=== PATIENT | male | born 1955 | race African-American/Black ===

== ENCOUNTER 2016-09-16 08:22 | Outpatient (CLI) | payer MEDICARE, MEDICAID ==
[2016-09-16 09:45] LABS: ALT (SGPT) 6 U/L (0-55); AST (SGOT) 11 U/L (5-34); Albumin 3.6 g/dL (3.5-5.0); Alkaline Phosphatase 89 U/L (40-150); Anion Gap 19 mmol/L (10-20); BUN (Urea Nitrogen) 35 mg/dL (8.4-25.7); Bilirubin, Total 0.8 mg/dL (0.2-1.2); Calc. Creatinine Clearance 0 mL/min (70-130); Calcium 10.1 mg/dL (7.8-10.44); Carbon Dioxide 29 mmol/L (22-29); Chloride 99 mmol/L (98-107); Estimated GFR-MDRD 12; Glucose 76 mg/dL (70-105); Potassium 4.1 mmol/L (3.5-5.1); Protein, Total 8.6 g/dL (6.0-8.3); Sodium 143 mmol/L (136-145)
[2016-09-16 10:38] LABS: #Basophils 0.1 thou/uL (0.0-0.2); #Eosinphils 0.5 thou/uL (0.0-0.7); #Lymphocytes 1.5 thou/uL (1.20-3.40); #Monocytes 0.7 thou/uL (0.11-0.59); #Neutrophils 4.3 thou/uL (1.40-6.50); %Basophils 0.8 % (0.0-1.0); %Eosinophils 6.9 % (0.0-10.0); %Lymphocytes 21.8 % (21.0-51.0); %Monocytes 9.4 % (0.0-10.0); %Neutrophils 61.1 % (42.0-75.0); Hemoglobin 9.9 g/dL (14.0-18.0); MDiff Complete? YES; Mean Corpuscular Hemoglobin 24.2 pg (27.0-31.0); Mean Corpuscular Volume 80.8 fl (80.0-94.0); Mean Platelet Volume 5.5 fL (7.4-10.4); Platelet Count 253 thou/uL (130-400); RBC Distribution Width 15.5 % (11.5-14.5); Red Blood Cell (RBC) Count 4.08 mill/uL (4.70-6.10); White Blood Cell (WBC) Count 7.1 thou/uL (4.8-10.8)
[2016-09-16 10:39] LABS: Anisocytosis SLIGHT = 6-15 cells (100X) (0-5/hpf); Hypochromia SLIGHT = 6-15 cells (100X) (0-5/hpf); PLT Morphology Comment Appears Adequate
== END 2016-09-16 08:23 | disposition home or self-care (01) ==
LOC: NAV NNR 08:22
PROVIDERS: ATTEND Internal Medicine
DX: E11.29 Type 2 diabetes mellitus with other diabetic kidney complication (principal); I10 Essential (primary) hypertension
CPT/HCPCS: 80053; 83880; 84443; 85025

== ENCOUNTER 2017-01-05 07:23 | Outpatient (CLI) | payer MEDICARE, OTHER ==
[2017-01-05 07:54] LABS: ALT (SGPT) 8 U/L (8-55); AST (SGOT) 13 U/L (5-34); Albumin 3.2 g/dL (3.5-5.0); Alkaline Phosphatase 74 U/L (40-150); Anion Gap 13 mmol/L (10-20); BUN (Urea Nitrogen) 23 mg/dL (8.4-25.7); Bilirubin, Total 0.7 mg/dL (0.2-1.2); Calc. Creatinine Clearance 0 mL/min (70-130); Calcium 10.4 mg/dL (7.8-10.44); Carbon Dioxide 35 mmol/L (22-29); Cardiac Risk 2.2 (Less than 4.5); Chloride 97 mmol/L (98-107); Cholesterol 97 mg/dl (< 200 Desired); Estimated GFR-MDRD 23; Globulin 4.6 g/dL (2.4-3.5); Glucose 94 mg/dL (70-105); HDL Cholesterol 45 mg/dL (>60 Neg Risk); LDL Cholesterol, Calculated 42 mg/dL; Potassium 3.3 mmol/L (3.5-5.1); Protein, Total 7.8 g/dL (6.0-8.3); Sodium 142 mmol/L (136-145); Triglycerides 49 mg/dL (Less than 150)
[2017-01-05 08:05] LABS: Hemoglobin A1c 4.8 % (4.0-6.0)
[2017-01-05 09:28] LABS: #Basophils 0.1 thou/uL (0.0-0.2); #Eosinphils 0.3 thou/uL (0.0-0.7); #Lymphocytes 0.8 thou/uL (1.20-3.40); #Monocytes 0.7 thou/uL (0.11-0.59); #Neutrophils 4.4 thou/uL (1.40-6.50); %Basophils 0.8 % (0.0-1.0); %Eosinophils 4.3 % (0.0-10.0); %Lymphocytes 13.2 % (21.0-51.0); %Monocytes 11.1 % (0.0-10.0); %Neutrophils 70.6 % (42.0-75.0); Anisocytosis MODERATE=16-30 cells (100X) (0-5/hpf); Hemoglobin 7.4 g/dL (14.0-18.0); Hypochromia MODERATE=16-30 cells (100X) (0-5/hpf); MDiff Complete? YES; Mean Corpuscular HGB CONC 30.6 g/dL (32.0-36.0); Mean Corpuscular Hemoglobin 22.5 pg (27.0-31.0); Mean Corpuscular Volume 73.5 fl (80.0-94.0); Mean Platelet Volume 6.1 fL (7.4-10.4); Microcytosis MODERATE=15-30 cells (100X) (0-5/hpf); PLT Morphology Comment Appears Adequate; Platelet Count 265 thou/uL (130-400); Poikilocytosis SLIGHT = 6-15 cells (100X) (0-5/hpf); RBC Distribution Width 16.7 % (11.5-14.5); Red Blood Cell (RBC) Count 3.28 mill/uL (4.70-6.10); Reflex for Review?? NO; Target Cells SLIGHT = 2-5 cells (100X) (0-1/hpf); White Blood Cell (WBC) Count 6.2 thou/uL (4.8-10.8)
== END 2017-01-05 07:24 | disposition home or self-care (01) ==
LOC: NAVSJIPCSP 07:23
PROVIDERS: ATTEND Internal Medicine
DX: N18.6 End stage renal disease (principal); Z79.899 Other long term (current) drug therapy
CPT/HCPCS: 80053; 80061; 83036; 83880; 84443; 85025

== ENCOUNTER 2017-01-23 21:21 | Outpatient (CLI) | payer MEDICARE, OTHER | END 2017-01-23 21:22 | disposition home or self-care (01) | LOC: NAV LABSP 21:21 | PROVIDERS: ATTEND Internal Medicine | DX: I12.9 Hypertensive chronic kidney disease with stage 1 through stage 4 chronic kidney disease, or unspecified chronic kidney disease (principal); D50.9 Iron deficiency anemia, unspecified; R19.7 Diarrhea, unspecified | CPT/HCPCS: 82274 ==

== ENCOUNTER 2017-01-24 07:59 | Outpatient (CLI) | payer MEDICARE, OTHER | END 2017-01-24 08:00 | disposition home or self-care (01) | LOC: NAV LABSP 07:59 | PROVIDERS: ATTEND Internal Medicine | DX: I12.9 Hypertensive chronic kidney disease with stage 1 through stage 4 chronic kidney disease, or unspecified chronic kidney disease (principal); R19.7 Diarrhea, unspecified; D50.9 Iron deficiency anemia, unspecified | CPT/HCPCS: 82274 ==